=== PATIENT | male | born 1960 | race Caucasian/White ===

== ENCOUNTER 2020-07-11 14:53 | Emergency (ER) | payer SELFPAY ==
[~2020-07-11] VITALS: Ht 190.5 cm; Wt 83.9 kg
[2020-07-11 15:26] LABS: BASO # 0.1 10*3/uL (0.0-0.1); BASO % 0.7 % (0.0-1.0); EOS # 0.1 10*3/uL (0.0-0.4); EOS % 1.6 % (1.0-4.0); HEMATOCRIT 43.6 % (42.0-52.0); LYMPH # 2.9 10*3/uL (1.3-4.4); LYMPH % 31.9 % (27.0-41.0); MEAN CORPUSCULAR HGB 32.1 pg (27.0-31.0); MEAN CORPUSCULAR HGB CONC 32.1 g/dl (33.0-37.0); MEAN PLATELET VOLUME 8.4 fl (9.6-12.3); MONO # 0.8 10*3/uL (0.1-1.0); MONO % 8.3 % (3.0-9.0); NEUT # 5.1 10*3/uL (2.3-7.9); NEUT % 56.8 % (47.0-73.0); PLATELET COUNT AUTOMATED 423 10*3/uL (130-400); RED BLOOD COUNT 4.36 10*6/uL (4.50-5.90); RED CELL DISTRI WIDTH 15.1 % (0-14.5)
[2020-07-11 15:43] LABS: ALBUMIN 3.9 gm/dl (3.1-4.5); ALKALINE PHOSPHATASE 83 U/L (45-117); BUN 11 mg/dl (7-24); CHLORIDE 104 mmol/L (98-107); CREATININE 1.04 mg/dL (0.70-1.30); POTASSIUM 4.1 mmol/L (3.5-5.1); SGOT/AST 36 IU/L (3-35); SGPT/ALT 51 U/L (12-78); SODIUM 137 mmol/L (136-145); TOTAL PROTEIN 7.6 gm/dL (6.4-8.2)
[2020-07-11 15:44] LABS: TROPONIN I < 0.015 ng/ml (<0.045)
== END 2020-07-11 16:25 | disposition home or self-care (01) ==
LOC: ED 14:53
PROVIDERS: Physician Assistant
DX: M67.442 Ganglion, left hand (principal)